=== PATIENT | male | born 1985 ===

== ENCOUNTER 2017-10-17 14:44 | Emergency (ER) | payer OTHER ==
[~2017-10-17] VITALS: Ht 172.7 cm; Wt 93.0 kg
[~2017-10-17 14:44] MED LIST: Percocet 5-3251 EACH PO
== END 2017-10-17 16:19 | disposition home or self-care (01) ==
LOC: ER 14:44
DX: S61.211A Laceration without foreign body of left index finger without damage to nail, initial encounter (principal); Z23 Encounter for immunization; W26.0XXA Contact with knife, initial encounter
CPT/HCPCS: 12002; 90471; 90714; 99283

== ENCOUNTER 2017-10-19 10:09 | Emergency (ER) | payer OTHER ==
[~2017-10-19] VITALS: Ht 172.7 cm; Wt 93.4 kg
== END 2017-10-19 10:27 | disposition home or self-care (01) ==
LOC: ER 10:09
DX: S61.211D Laceration without foreign body of left index finger without damage to nail, subsequent encounter (principal); W26.0XXD Contact with knife, subsequent encounter
CPT/HCPCS: 99282

== ENCOUNTER 2018-11-10 16:51 | Emergency (ER) | payer SELFPAY ==
[~2018-11-10] VITALS: Ht 172.7 cm; Wt 96.2 kg
[2018-11-10 18:00] LABS: Source, Urine Clean Catch
[2018-11-10 18:06] LABS: Bilirubin, Urine Neg (Neg); Blood, Urine Neg (Neg); Glucose Qualitative, Urine Neg (Neg); Ketones, Urine Neg (Neg); Leukocyte Esterase, Urine 1+ (Neg); Nitrite, Urine Neg (Neg); Protein, Urine 1+ (Neg); Urobilinogen, Urine 1+ (Normal)
[2018-11-10 18:32] LABS: Appearance, Urine Hazy (Clear); Color, Urine Yellow (P-Yellow)
[2018-11-10 18:35] LABS: Bacteria Many /hpf; Red Blood Cells, Urine 0-2 /hpf (0-2); Squamous Epithelial Cells Rare /hpf (Few)
[2018-11-10 18:36] LABS: Amorphous Light ({null, 0-Heavy})
[2018-11-10] MEDS ORDERED: DOXY100T53 PO (20:27)
[2018-11-10] MEDS ORDERED: Norco 5-325 Ta1 EACH PO (20:27)
== END 2018-11-10 20:58 | disposition home or self-care (01) ==
LOC: ER 16:51
PROVIDERS: Physician Assistant
DX: N45.1 Epididymitis (principal)
CPT/HCPCS: 76870; 81001; 87086; 96372; 99284-25; J0696